=== PATIENT | female | born 1960 | race African-American/Black ===

== ENCOUNTER 2018-03-05 10:41 | Day surgery (SDC) | payer BC ==
[~2018-03-05] VITALS: Ht 152.4 cm; Wt 66.7 kg
[2018-03-05] MEDS ORDERED: CARVEDILOL25 MG ORAL (11:38)
[2018-03-05] MEDS ORDERED: AMLODIPINE BESY10 MG ORAL (11:38)
[2018-03-05] MEDS ORDERED: CIPROFLOXACIN2.5 ML LEFT EYE (11:38)
[2018-03-05 11:39] VITALS: BP 107/67
[2018-03-05] MEDS ORDERED: Ciprofloxacin Opth Soln 2.5ml ONE (11:56)
[2018-03-05] MEDS: Ciprofloxacin Opth Soln 2.5ml LEFT EYE SCH ×3 (11:57→12:12)
--- NOTE | 2018-03-05 12:01 | Pre-Procedure Note/Attestation ---
Pre-Procedure Note/Attestation Complete Prior to Procedure Planned Procedure: left Procedure Narrative: Wound revision and scleral reinforcement left eye Indications for Procedure Pre-Operative Diagnosis: Primary open angle glaucoma severe left eye Attestation I attest that I discussed the nature of the procedure; its benefits; risks and complications; and alternatives (and the risks and benefits of such alternatives ), prior to the procedure, with the patient (or the patient's legal distribution sales representative). I attest that, if there was a reasonable possibility of needing a blood transfusion, the patient (or the patient's legal distribution sales representative) was given the [facility] standardized written summary, pursuant to the Haresh Savage Blood Safety Act ([place] Health and Safety Code # 1645, as amended). I attest that I re-evaluated the patient just prior to the surgery and that there has been no change in the patient's H&P, except as documented below: Jv Porras DO Mar 05, 2018 12:01
[2018-03-05] MEDS ORDERED: Midazolam 2mg/2ml Inj ONE (13:00)
[2018-03-05] MEDS ORDERED: Lidocaine 1% MPF 10mg/ml 5ml ONE (13:00)
--- NOTE | 2018-03-05 13:14 | Anethesia Preoperative Eval ---
Anesthesia Pre-op PMH/ROS General Date of Evaluation: Mar 05, 2018 Time of Evaluation: 13:34 Anesthesiologist: Corrie ASA Score: ASA 2 Mallampati Score Class I : Soft palate, uvula, fauces, pillars visible Class II: Soft palate, uvula, fauces visible Class III: Soft palate, base of uvula visible Class IV: Only hard plate visible Mallampati Classification: Class II Surgeon: Vern Diagnosis: Wound OS Surgical Procedure: Wound Revision & Scleral Re Enforcement Anesthesia History: none Family History: no anesthesia problems Allergies: Coded Allergies: LISINOPRIL (Verified Allergy, Severe, 03/05/18) FACIAL SWELLING,THROAT CLOSES UP Medications: see eMAR Past Medical History Cardiovascular: Reports: HTN Gastrointestinal/Genitourinary: Reports: other - Hemorrhoids HEENT: Reports: cataract (L), cataract (R), glaucoma PSxH Narrative: L THR, Cat Ext IOL OD Anesthesia Pre-op Phys. Exam Physician Exam Last Vital Signs Date Time Temp Pulse Resp B/P (MAP) Pulse Ox O2 Delivery O2 Flow Rate FiO2 03/05/18 11:39 98.1 59 20 107/67 (80) 100 98.1 03/05/18 11:29 Room Air Constitutional: NAD Neurologic: CN 2-12 intact Cardiovascular: RRR Respiratory: CTA Gastrointestinal: S/NT/ND Airway Exam Mallampati Score: Class II MO: full ROM: full Teeth: missing, intact Anesthesia Pre-op A/P Risk Assessment & Plan Assessment: ASA 2 Plan: GA Status Change Before Surgery: No Leo Denton MD Mar 05, 2018 13:13
--- NOTE | 2018-03-05 13:28 | General Surgery Progress Note ---
General Surgery-Progress Note Subjective Day of Surgery: 03/05/18 Reason for Consult Uncontrolled glaucoma left eye Procedure Performed Wound revision and scleral reinforcement left eye Objective Last 24 Hour Vital Signs Date Time Temp Pulse Resp B/P (MAP) Pulse Ox O2 Delivery O2 Flow Rate FiO2 03/05/18 11:39 98.1 59 20 107/67 (80) 100 98.1 03/05/18 11:29 Room Air Dressing: dry Wound: clean Drains: none Respiratory: clear Assessment Post-op Diagnosis Primary open angle glaucoma left eye Jv Porras DO Mar 05, 2018 13:28
[2018-03-05] MEDS ORDERED: LR 1000ml ONE (13:30)
[2018-03-05] MEDS ORDERED: Sterile Water Irrig 1000ml IRRIG ONE (13:30)
[2018-03-05] MEDS ORDERED: NS Irrig 1000ml ONE (13:30)
[2018-03-05] MEDS ORDERED: Propofol 200mg/20ml IV ONE (13:30)
--- NOTE | 2018-03-05 13:30 | Brief Operative Note ---
Immediate Post Operative Note Operative Note Chief Complaint: Uncontrolled Glaucoma left eye Pre-op Diagnosis: Primary open angle glaucoma severe left eye Procedure: Wound revision and scleral reinforcement left eye Post-op Diagnosis: Primary open angle glaucoma left eye Post-op Diagnosis: same as pre-op Findings: consistent w/pre-op dx studies Surgeon: Dr Porras Anesthesia: MAC Specimen: none Complications: none Condition: stable Fluids: None Estimated Blood Loss: none Drains: none Implant(s) used?: No Jv Porras DO Mar 05, 2018 13:29
--- NOTE | 2018-03-05 13:31 | Discharge Instructions ---
Discharge Instructions Discharge Instructions Follow up with: Dr Porras Diet: regular Resume Normal Activity?: No Activity: light activity Follow Up Orders See Dr Porras 03/06/18 in his office For Surgical Patients Dressing Care: keep dry and clean Contact your physician for: bleeding, yellowish discharge in the op. site For Congestive Heart Failure Reminder Report to your physician any weight gain of 5 pounds or more in one week. Jv Porras DO Mar 05, 2018 13:31
[2018-03-05] MEDS ORDERED: Maxitrol Opth Oint 3.5gm ONE (13:38)
[2018-03-05] MEDS ORDERED: Maxitrol Opth Susp 5ml ONE ×2 (13:39→14:15)
[2018-03-05] MEDS ORDERED: Dexamethasone 4mg/ml vial ONE (13:39)
[2018-03-05] MEDS ORDERED: Akten 3.5% 1ml Btl ONE ×2 (13:39→14:15)
[2018-03-05] MEDS ORDERED: BSS 500ml btl ONE (13:39)
[2018-03-05] MEDS ORDERED: BSS 15ml BTL ONE ×2 (13:39→14:32)
[2018-03-05] MEDS ORDERED: Lidocaine 2% 20mg/ml/Epi 0.005mg/ml 20ml vial ONE (13:39)
[2018-03-05] MEDS ORDERED: Bupivacaine 0.75% 30ml vial INJ ONE (13:40)
[2018-03-05] MEDS ORDERED: Tetracaine 0.5% Opth 4ml Soln ONE (13:40)
[2018-03-05] MEDS ORDERED: Povidone-Iodine 5% opth solution ONE (13:41)
[2018-03-05] MEDS ORDERED: Fluorescein Strips ONE ×2 (13:54→14:04)
[2018-03-05] MEDS ORDERED: Sodium Hyaluronate 10 mg/ml 0.85ml ONE (14:04)
--- NOTE | 2018-03-05 14:08 | Immediate Post-Op Evaluation ---
Immediate Post-Op Evalulation Immediate Post-Op Evalulation Procedure: Wound Revision & Scleral Re Enforcement Date of Evaluation: Mar 05, 2018 Time of Evaluation: 15:15 IV Fluids: 400 LR Blood Products: 0 Estimated Blood Loss: 1 Urinary Output: 0 Blood Pressure Systolic: 137 Blood Pressure Diastolic: 64 Pulse Rate: 48 Respiratory Rate: 16 O2 Sat by Pulse Oximetry: 100 Temperature (Fahrenheit): 97.8 Pain Score (1-10): 1 Nausea: No Vomiting: No Complications 0 Patient Status: awake, reacts, patent, none Hydration Status: adequate Leo Denton MD Mar 05, 2018 14:08
--- NOTE | 2018-03-05 14:09 | 48 Hour Post Anesthesia Eval ---
Post Anesthesia Evaluation Procedure: Wound Revision & Scleral Re Enforcement Date of Evaluation: Mar 05, 2018 Time of Evaluation: 17:21 Blood Pressure Systolic: 138 0: 76 Pulse Rate: 49 Respiratory Rate: 18 Temperature (Fahrenheit): 98.2 O2 Sat by Pulse Oximetry: 100 Airway: patent Nausea: No Vomiting: No Pain Intensity: 1 Hydration Status: adequate Cardiopulmonary Status: Stable Mental Status/LOC: patient returned to baseline Follow-up Care/Observations: 0 Post-Anesthesia Complications: 0 Follow-up care needed: ready to discharge Leo Denton MD Mar 05, 2018 14:09
[2018-03-05 15:04] VITALS: BP 146/64
[2018-03-05 15:30] VITALS: BP 146/64
[2018-03-05 15:35] VITALS: BP 144/62
[2018-03-05 16:00] VITALS: BP 152/66
--- NOTE | 2018-03-05 21:45 | Operative Note - Dictated ---
DATE OF OPERATION: 03/05/2018 PREOPERATIVE DIAGNOSIS: Severe primary open angle glaucoma with hypotony, maculopathy of the left eye. ANESTHESIA: Monitored anesthesia care. COMPLICATIONS: None. SPECIMENS: None. DRAINS: None. SURGERY: Wound revision with scleral reinforcement, left eye. DESCRIPTION OF PROCEDURE: The patient was brought to the operating room, prepped and draped in the usual sterile manner for a left eye procedure. With the aid of an operating microscope, a lid speculum was placed in the left eye. A paracentesis was created temporally. A corneal shield was placed over the eye. A 6-0 Vicryl suture was passed partial thickness through the cornea and used as a traction suture. The eye was rotated down exposing the prior trabeculectomy site. Confirmation of a leaking bleb was made with fluorescein strips. The conjunctiva was dissected at the limbus and the fornix based conjunctiva flap was created over the trabeculectomy site. The necrotic conjunctiva was removed and the edges freshened. Bleeding was controlled wet-field cautery. The trabeculectomy flap was sutured down with two 10-0 nylon sutures. The knots were rotated and buried. The wound was checked for leaks, there were none at that point. As the conjunctiva was not able to be completely pulled over the wound, the decision to use a pericardium scleral reinforcement was made. pericardium after being soaked in Ancef solution was sized and shaped and placed over the wound with four 10-0 nylon sutures. The knots were rotated and buried. A second thin layer of pericardium was placed over the first with again four 10-0 nylon sutures. The wound was checked for leaks, there were none. The traction suture was removed. Subconjunctival injections of Decadron and Ancef were given. Atropine eye drops were placed on the eye. The lid speculum was removed. Patch and shield placed over the eye and the patient delivered to the recovery room in good condition. Jv Porras D.O. DR: TABATHA JOB#: [id number] CC:
== END 2018-03-05 16:10 | disposition home or self-care (01) ==
LOC: SUR 10:41
DX: H40.1123 Primary open-angle glaucoma, left eye, severe stage (principal); H44.40 Unspecified hypotony of eye; H35.382 Toxic maculopathy, left eye; M19.90 Unspecified osteoarthritis, unspecified site; I10 Essential (primary) hypertension; D50.9 Iron deficiency anemia, unspecified; Z14.8 Genetic carrier of other disease; E66.3 Overweight; Z68.29 Body mass index [BMI] 29.0-29.9, adult; R73.03 Prediabetes; K64.9 Unspecified hemorrhoids; Z87.891 Personal history of nicotine dependence; Z90.710 Acquired absence of both cervix and uterus; Z88.7 Allergy status to serum and vaccine; Z88.8 Allergy status to other drugs, medicaments and biological substances
CPT/HCPCS: 66250; J0690; J1100; J2250; J2704; J3490; J7120; 94003; 94150